=== PATIENT | female | born 1950 | race Caucasian/White ===

== ENCOUNTER → 2016-10-07 | Outpatient (CLI) | payer MEDICARE ==
[~2016-10-07] MED LIST: ALDACTONE 25MG25 MG PO; ASPIR 8181 MG PO; CLARITIN10 M2 PO; DULERA 100 MCG8.8 GM INH; GLUCOPHAGE 500500 MG PO; KLOR-CON M2020 MEQ PO; LASIX 40 MG TAB40 MG PO; LISINOPRIL5 MG PO; LORTAB 7.5-3251 EACH PO; METOPROLOL SUCC25 MG PO; SERTRALINE HCL100 MG PO; TIZANIDINE HCL4 M1 PO; VITAMIN D50000 UNIT PO
== END ==
LOC: LAB 12:58
DX: Z01.812 Encounter for preprocedural laboratory examination (principal); Z96.641 Presence of right artificial hip joint
CPT/HCPCS: 36415; 80051; 82565; 84520; 86850; 86900; 86901

== ENCOUNTER 2016-10-08 07:51 | Inpatient (IN) | payer MEDICARE ==
[~2016-10-08] VITALS: Ht 167.6 cm; Wt 112.9 kg
[~2016-10-08 07:51] MED LIST changes: -CLARITIN10 M2 PO; -DULERA 100 MCG8.8 GM INH; -METOPROLOL SUCC25 MG PO
[2016-10-08] MEDS ORDERED: METOPROLOL SUCC25 MG PO (09:25)
[2016-10-08] MEDS ORDERED: DULERA 100 MCG8.8 GM INH (09:26)
[2016-10-08] MEDS ORDERED: CLARITIN10 M2 PO (09:27)
[2016-10-09 05:48] LABS: HEMOGLOBIN 8.5 gm/dl (12.3-15.3); RED BLOOD COUNT 2.84 M/UL (4.00-5.10); WHITE BLOOD COUNT 8.1 K/UL (4.5-11.0)
[2016-10-10 04:30] LABS: HEMOGLOBIN 9.4 gm/dl (12.3-15.3); RED BLOOD COUNT 3.12 M/UL (4.00-5.10)
[2016-10-10 04:37] LABS: WHITE BLOOD COUNT 10.7 K/UL (4.5-11.0)
[2016-10-11 04:18] LABS: HEMOGLOBIN 8.3 gm/dl (12.3-15.3); WHITE BLOOD COUNT 8.8 K/UL (4.5-11.0)
[2016-10-11 04:19] LABS: RED BLOOD COUNT 2.76 M/UL (4.00-5.10)
== END 2016-10-11 10:59 | disposition short-term general hospital (02) | DRG 466 ==
LOC: CCU 07:51 → ZOBSOF 07:51 → M/S 07:51 → CCU 10-09 13:16 → PROG CARE 10-10 22:00
PROVIDERS: Family Medicine; ADMIT Orthopaedic Surgery
PROC: 0SUA09Z Supplement Right Hip Joint, Acetabular Surface with Liner, Open Approach (ICD-10-PCS; 2016-10-08)
PROC: 0SRA03A Replacement of Right Hip Joint, Acetabular Surface with Ceramic Synthetic Substitute, Uncemented, Open Approach (ICD-10-PCS; 2016-10-08)
PROC: 0SPA0JZ Removal of Synthetic Substitute from Right Hip Joint, Acetabular Surface, Open Approach (ICD-10-PCS; 2016-10-08)
PROC: 0SP909Z Removal of Liner from Right Hip Joint, Open Approach (ICD-10-PCS; principal; 2016-10-08 11:15)
PROC: 4A023N7 Measurement of Cardiac Sampling and Pressure, Left Heart, Percutaneous Approach (ICD-10-PCS; 2016-10-11)
PROC: B2111ZZ Fluoroscopy of Multiple Coronary Arteries using Low Osmolar Contrast (ICD-10-PCS; 2016-10-11)
DX: T84.89XA Other specified complication of internal orthopedic prosthetic devices, implants and grafts, initial encounter (principal); I21.4 Non-ST elevation (NSTEMI) myocardial infarction; I50.32 Chronic diastolic (congestive) heart failure; N39.0 Urinary tract infection, site not specified; Z68.41 Body mass index [BMI] 40.0-44.9, adult; Y74.8 Miscellaneous general hospital and personal-use devices associated with adverse incidents, not elsewhere classified; I10 Essential (primary) hypertension; E11.9 Type 2 diabetes mellitus without complications; D64.89 Other specified anemias; G47.33 Obstructive sleep apnea (adult) (pediatric); Z98.61 Coronary angioplasty status; F32.9 Major depressive disorder, single episode, unspecified; E78.5 Hyperlipidemia, unspecified; B96.20 Unspecified Escherichia coli [E. coli] as the cause of diseases classified elsewhere; E66.01 Morbid (severe) obesity due to excess calories; Z88.2 Allergy status to sulfonamides; Z79.82 Long term (current) use of aspirin; Z79.899 Other long term (current) drug therapy; Z87.891 Personal history of nicotine dependence; Z87.11 Personal history of peptic ulcer disease; Z90.710 Acquired absence of both cervix and uterus
CPT/HCPCS: 36415; 71010; 73501; 80048; 81001; 82550; 82553; 82607; 82803; 82962; 83540; 83550; 84484; 85025; 87070; 87205; 93005; 94640; 94664; C1769; C1776; C1887; J0583; J0690; J1644; J1650; J2250; J2270; J2370; J2405; J2795; J3010; J3370; J7030; J7050; J7070; J7120; Q0162; Q0163; Q9963